=== PATIENT | male | born 1995 | race African-American/Black ===

== ENCOUNTER 2018-11-05 21:12 | Emergency (ER) | payer OTHER ==
[~2018-11-05] VITALS: Ht 185.4 cm; Wt 71.3 kg
[2018-11-05 21:33] VITALS: BP 146/77
--- NOTE | 2018-11-05 21:42 | NUR ---
PT AMBULATED BACK TO THE LOBBY, SHAILAS
--- NOTE | 2018-11-05 22:36 | NUR ---
PT AMBULATED TO ED BED 01
--- NOTE | 2018-11-05 22:45 | NUR ---
PT TO ED WITH C/O HEADACHE X 3 WEEKS. PT DENIES N/V. NO VISUAL DISTURBANCES. NO NUERO DEFECITS. PT REPORTS TEMPORARY RELIEF WITH OTC EXCEDRINE BUT HEADAHCE RETURNS. PT PLACED INTO BED, PENDING MD GLORIA.
[2018-11-05 23:59] VITALS: BP 138/74
--- NOTE | 2018-11-05 23:59 | NUR ---
Patient discharged with v/s stable. Written and verbal after care instructions given and explained. Patient alert, oriented and verbalized understanding of instructions. Ambulatory with steady gait. All questions addressed prior to discharge. ID band removed. Patient advised to follow up with PMD. Rx of MOTRIN AND REGLAN given. Patient educated on indication of medication including possible reaction and side effects. Opportunity to ask questions provided and answered.
== END 2018-11-05 23:59 | disposition home or self-care (01) ==
LOC: MED 21:12
DX: G44.209 Tension-type headache, unspecified, not intractable (principal); J45.909 Unspecified asthma, uncomplicated
CPT/HCPCS: 70450; 99284